=== PATIENT | male | born 1945 | race Caucasian/White ===

== ENCOUNTER 2024-11-26 12:26 | Emergency (ER) | payer BC, OTHER ==
[2024-11-26 12:38] VITALS: TEMP 98.4; BMI 24.3
[2024-11-26 16:28] VITALS: BP 122/78; PULSE 72; RESP 19
== END 2024-11-26 16:29 | disposition home or self-care (01) ==
LOC: JER 12:26
DX: R42 Dizziness and giddiness (principal); R51.9 Headache, unspecified; M54.2 Cervicalgia; M54.50 Low back pain, unspecified; R41.0 Disorientation, unspecified; W01.198A Fall on same level from slipping, tripping and stumbling with subsequent striking against other object, initial encounter
CPT/HCPCS: 70450-TC; 82962; 99284-25